=== PATIENT | female | born 1980 | race Hispanic/Latino ===

== ENCOUNTER 2019-12-08 01:37 | Emergency (ER) | payer MEDICAID ==
--- NOTE | 2019-12-08 04:50 | XRay Report ---
CHEST 1 VIEW INDICATION: Chest Pain. COMPARISON: None. FINDINGS: Support devices: None. Heart: Normal. Lungs/Pleura: No acute pulmonary or pleural findings. IMPRESSION: 1. No acute findings. Signer Name: Bang Lawson MD Signed: 12/08/2019 4:45 AM Workstation Name: [id number]
[2019-12-08 04:55] LABS: Basophils % (Auto) 0.5 % (0.0-1.8); Eosinophils % (Auto) 0.2 % (0.0-4.3); Lymphocytes # (Auto) 2.3 K/mm3 (1.2-5.4); Lymphocytes % (Auto) 22.5 % (13.4-35.0); Monocytes # (Auto) 0.8 K/mm3 (0.0-0.8); Monocytes % (Auto) 7.5 % (0.0-7.3)
[2019-12-08 05:04] LABS: Hematocrit 40.5 % (30.3-42.9); Mean Corpuscular HGB Conc 35 % (30-34); Mean Corpuscular Volume 93 fl (79-97); Platelet Count 315 K/mm3 (140-440); Red Blood Count 4.37 M/mm3 (3.65-5.03); Red Cell Distribution Width 13.1 % (13.2-15.2)
[2019-12-08 05:09] LABS: BUN/Creatinine Ratio 12; Blood Urea Nitrogen 6 mg/dL (7-17); Calcium 9.4 mg/dL (8.4-10.2); Hemolysis Index 6
[2019-12-08 05:13] LABS: Alanine Aminotransferase 10 units/L (7-56); Albumin 4.6 g/dL (3.9-5)
[2019-12-08 05:16] LABS: Bilirubin,Direct < 0.2 mg/dL (0-0.2)
[2019-12-08 05:20] LABS: Amphetamine Screen,Urine PRESUMPTIVE NEGATIVE; Benzodiazepines Screen,Urine PRESUMPTIVE NEGATIVE; Cocaine Screen,Urine PRESUMPTIVE NEGATIVE; Methadone Screen,Urine PRESUMPTIVE NEGATIVE; Opiate Screen,Urine PRESUMPTIVE NEGATIVE
[2019-12-08 05:25] LABS: HCG Qualitative,Urine Negative (Negative)
[2019-12-08 05:55] LABS: Cannabinoid Screen,Urine PRESUMPTIVE POSITIVE
[2019-12-08] MEDS ORDERED: POTASSIUM CHLORIDE ER 20 MEQ TAB PO ONE (06:11)
--- NOTE | 2019-12-08 06:27 | Emergency Department Report ---
ED Chest Pain HPI - General Chief Complaint: Chest Pain Stated Complaint: PSYCH Time Seen by Provider: 12/08/19 06:10 Source: patient Mode of arrival: Ambulatory Limitations: No Limitations - History of Present Illness Initial Comments: This is a 39-year old female with a history of schizophrenia/bipolar disorder? She has had previous psychiatric hospitalizations. She states that she has no cardiac history. She was entered in the system with a chief complaint of chest pain. However she does not complain to me of chest pain actively or recently at all. She states sometimes she feels like something is "pushing up" from her epigastric region. She seems to have no indication of acuity with this complaint. She is not complaining of any chest discomfort at this time. She states that she has never been hospitalized for chest pain. She does not give any history of diabetes, hypertension, hyperlipidemia or any medical problem. She is not compliant with her medicine for her mental health disorder but states, "Pot is my medicine". The triage note also indicates that the patient was recently incarcerated. That she has not recently traveled as she was in shelter for several days she states. She does not complain of leg pain or swelling. She has no prior history of VTE. She cannot state that she has had a prior EKG. She does smoke. Her father has a history of myocardial infarction she states. She denies any sort of medical hospitalization other than previous psychiatric hospitalizations however. The triage note indicates that the patient had auditory and visual hallucinations. The patient tells me this is not accurate as she has "agency over that". She is not violent, depressed homicidal or suicidal. As above, she is noncompliant with her psychiatric medication. MD Complaint: chest pain -: unknown Onset: during rest Pain Location: epigastric Pain Radiation: none Severity: mild Quality: other ("Pushing up") Consistency: intermittent, now resolved Improves With: nothing Worsens With: nothing re: denies: nausea, vomting, diaphoresis, dyspnea, sense of impending doom Other Symptoms: denies: cough, fever, syncope, rash, acid taste in mouth, leg swelling, palpitations, burping Treatments Prior to Arrival: none Aspirin use within the Past 7 Days: (0) No - Related Data Allergies Allergy/AdvReac Type Severity Reaction Status Date / Time sulfur dioxide Allergy Hives Verified 12/08/19 03:16 Heart Score - HEART Score History: Slightly suspicious EKG: Significant ST-depression Age: < 45 Risk factors: 1-2 risk factors Troponin: < normal limit HEART Score: 3 - Critical Actions Critical Actions: 0-3 pts:0.9-1.7%risk of adverse cardiac event.Candidate for discharge ED Review of Systems ROS: Stated complaint: PSYCH Other details as noted in HPI Constitutional: denies: chills, fever Eyes: denies: eye pain, eye discharge, vision change ENT: denies: ear pain, throat pain Respiratory: denies: cough, shortness of breath, wheezing Cardiovascular: chest pain. denies: palpitations Endocrine: no symptoms reported Gastrointestinal: denies: abdominal pain, nausea, diarrhea Genitourinary: denies: urgency, dysuria, discharge Musculoskeletal: denies: back pain, joint swelling, arthralgia Skin: denies: rash, lesions Neurological: denies: headache, weakness, paresthesias Psychiatric: as per HPI, auditory hallucinations, visual hallucinations. denies: anxiety, depression, homicidal thoughts, suicidal thoughts Hematological/Lymphatic: denies: easy bleeding, easy bruising ED Past Medical Hx - Past Medical History Previous Medical History?: No - Surgical History Past Surgical History?: Yes Additional Surgical History: x2 - Family History Family history: CAD/FL - Social History Smoking Status: Current Every Day Smoker Substance Use Type: Alcohol ED Physical Exam - General Limitations: No Limitations General appearance: alert, in no apparent distress - Head Head exam: Present: atraumatic, normocephalic - Eye Eye exam: Present: normal appearance. Absent: scleral icterus - ENT ENT exam: Present: mucous membranes moist - Neck Neck exam: Present: normal inspection, full ROM - Respiratory Respiratory exam: Present: normal lung sounds bilaterally. Absent: respiratory distress - Cardiovascular Cardiovascular Exam: Present: regular rate, normal rhythm. Absent: systolic murmur, diastolic murmur, rubs, gallop - GI/Abdominal GI/Abdominal exam: Present: soft, normal bowel sounds. Absent: distended, tenderness, guarding - Extremities Exam Extremities exam: Present: normal inspection. Absent: pedal edema, joint swelling, calf tenderness - Back Exam Back exam: Present: normal inspection - Neurological Exam Neurological exam: Present: alert, oriented X3, CN II-XII intact. Absent: motor sensory deficit - Psychiatric Psychiatric exam: Present: other (Flight of ideas, loose association, slightly hypomanic) - Skin Skin exam: Present: warm, dry, intact, normal color. Absent: rash ED Course Vital Signs 12/08/19 12/08/19 12/08/19 03:24 05:57 07:30 Temperature 98.3 F 98.5 F 98.9 F Pulse Rate 113 H 100 H 84 Respiratory 14 18 18 Rate Blood Pressure 153/89 Blood Pressure 134/74 129/89 [Left] O2 Sat by Pulse 99 100 98 Oximetry 12/08/19 08:10 Temperature 98.9 F Pulse Rate 84 Respiratory 18 Rate Blood Pressure Blood Pressure 129/89 [Left] O2 Sat by Pulse 98 Oximetry - Reevaluation(s) Reevaluation #1: A repeat 12-lead EKG was obtained after potassium administration. The ST depression is decreased. Patient has had no complaint of chest pain here. The patient's d-dimer was slightly elevated. We will proceed with a CTA. I think there is very low likelihood of this being positive. Ultimately the patient should be medically clear for psychiatric placement unless anything else is found. 12/08/19 09:32 12/08/19 09:37 Reevaluation #2: Patient had an episode of active hallucinosis and appeared to be quite delusional. She was given Ativan and Geodon. A 1013 was executed. She is pending mental health evaluation and I presume placement. 12/08/19 09:33 GERSON score - Gerson Score Age > 65: (0) No Aspirin use within the Past 7 Days: (0) No 3 or more CAD Risk Factors: (0) No 2 or more Angina events in past 24 hrs: (0) No Known CAD with more than 50% Stenosis: (0) No Elevated Cardiac Markers: (0) No ST Deviation Greater than 0.5mm: (0) No GERSON Score: 0 ED Medical Decision Making - Lab Data Result diagrams: 12/08/19 04:29 12/08/19 04:29 Laboratory Results - last 24 hr 12/08/19 12/08/19 12/08/19 04:29 04:29 04:34 WBC 10.1 RBC 4.37 Hgb 14.0 Hct 40.5 MCV 93 MCH 32 MCHC 35 H RDW 13.1 L Plt Count 315 Lymph % (Auto) 22.5 Cole % (Auto) 7.5 H Eos % (Auto) 0.2 Baso % (Auto) 0.5 Lymph # 2.3 Cole # 0.8 Eos # 0.0 Baso # 0.0 Seg Neutrophils % 69.3 Seg Neutrophils # 7.0 Sodium 142 Potassium 3.0 L Chloride 101.4 Carbon Dioxide 22 Anion Gap 22 BUN 6 L Creatinine 0.5 L Estimated GFR > 60 BUN/Creatinine Ratio 12 Glucose 169 H Calcium 9.4 Total Bilirubin Direct Bilirubin Indirect Bilirubin AST ALT Alkaline Phosphatase Troponin T < 0.010 Total Protein Albumin Albumin/Globulin Ratio Urine HCG, Qual Salicylates < 0.3 L Urine Opiates Screen Urine Methadone Screen Acetaminophen Ur Barbiturates Screen Ur Phencyclidine Scrn Ur Amphetamines Screen U Benzodiazepines Scrn Urine Cocaine Screen U Marijuana (THC) Screen Drugs of Abuse Note 12/08/19 12/08/19 12/08/19 04:34 04:34 04:40 WBC RBC Hgb Hct MCV MCH MCHC RDW Plt Count Lymph % (Auto) Cole % (Auto) Eos % (Auto) Baso % (Auto) Lymph # Cole # Eos # Baso # Seg Neutrophils % Seg Neutrophils # Sodium Potassium Chloride Carbon Dioxide Anion Gap BUN Creatinine Estimated GFR BUN/Creatinine Ratio Glucose Calcium Total Bilirubin 0.60 Direct Bilirubin < 0.2 Indirect Bilirubin 0.4 AST 15 ALT 10 Alkaline Phosphatase 82 Troponin T Total Protein 6.9 Albumin 4.6 Albumin/Globulin Ratio 2.0 Urine HCG, Qual Negative Salicylates Urine Opiates Screen Urine Methadone Screen Acetaminophen < 5.0 L Ur Barbiturates Screen Ur Phencyclidine Scrn Ur Amphetamines Screen U Benzodiazepines Scrn Urine Cocaine Screen U Marijuana (THC) Screen Drugs of Abuse Note 12/08/19 04:40 WBC RBC Hgb Hct MCV MCH MCHC RDW Plt Count Lymph % (Auto) Cole % (Auto) Eos % (Auto) Baso % (Auto) Lymph # Cole # Eos # Baso # Seg Neutrophils % Seg Neutrophils # Sodium Potassium Chloride Carbon Dioxide Anion Gap BUN Creatinine Estimated GFR BUN/Creatinine Ratio Glucose Calcium Total Bilirubin Direct Bilirubin Indirect Bilirubin AST ALT Alkaline Phosphatase Troponin T Total Protein Albumin Albumin/Globulin Ratio Urine HCG, Qual Salicylates Urine Opiates Screen Presumptive negative Urine Methadone Screen Presumptive negative Acetaminophen Ur Barbiturates Screen Presumptive negative Ur Phencyclidine Scrn Presumptive negative Ur Amphetamines Screen Presumptive negative U Benzodiazepines Scrn Presumptive negative Urine Cocaine Screen Presumptive negative U Marijuana (THC) Screen Presumptive positive Drugs of Abuse Note Disclamer - EKG Data -: EKG Interpreted by Me EKG shows normal: sinus rhythm Rate: normal - EKG Data Interpretation: other (Inferolateral depressed T waves, uncertain recency, consider electrolyte disorder or ischemia) - Radiology Data Radiology results: report reviewed (No acute process), image reviewed IMPRESSION: 1. No CT evidence for pulmonary embolism. 2. No acute findings. Critical care attestation.: If time is entered above; I have spent that time in minutes in the direct care of this critically ill patient, excluding procedure time. ED Disposition Clinical Impression: Bipolar 1 disorder with moderate cailin, Acute psychosis, Hypokalemia Disposition: DC/TX-65 PSY HOSP/PSY UNIT Is pt being admited?: No Does the pt Need Aspirin: No Condition: Stable Referrals: PRIMARY CARE, [Primary Care Provider] - 3-5 Days Time of Disposition: 13:30
[2019-12-08] MEDS ORDERED: ZIPRASIDONE MESYLATE 20 MG VIAL IM ONE (07:01)
[2019-12-08] MEDS ORDERED: LORazepam 2 MG/ML VIAL IM ONE (07:01)
[2019-12-08 07:39] LABS: Partial Thromboplastin Time 28.8 Sec. (24.2-36.6)
[2019-12-08] MEDS ORDERED: MAGNESIUM OXIDE 400 MG TAB PO ONE (10:35)
--- NOTE | 2019-12-08 12:44 | Cat Scan Report ---
CTA CHEST WITH IV CONTRAST INDICATION / CLINICAL INFORMATION: Chest pain, slightly elevated dimer. TECHNIQUE: Axial CT images were obtained through the chest after injection of 100 mL Omnipaque 350 milligrams pe rcent IV contrast. 3 plane MIP and/or 3D reconstructions were produced. All CT scans at this location are performed using CT dose reduction for ALARA by means of automated exposure control. COMPARISON: None available. FINDINGS: PULMONARY ARTERIES: No pulmonary emboli. THORACIC AORTA: No significant abnormality. HEART: No significant abnormality. CORONARY ARTERIES: No significant calcification. PLEURA: No pleural effusion. No pneumothorax. LYMPH NODES: No significant adenopathy. LUNGS: No acute air space or interstitial disease. ADDITIONAL FINDINGS: None. UPPER ABDOMEN: No acute findings. SKELETAL STRUCTURES: No significant osseous abnormality. IMPRESSION: 1. No CT evidence for pulmonary embolism. 2. No acute findings. Signer Name: Tanner Rosario MD Signed: 12/08/2019 12:39 PM Workstation Name: [id number]
[2019-12-08] MEDS ORDERED: MAGNESIUM HYDROXIDE (MOM) ORAL LIQD UDC PO PRN (13:27)
[2019-12-08] MEDS ORDERED: ACETAMINOPHEN 325 MG TAB PO PRN (13:27)
[2019-12-08] MEDS ORDERED: ALUM-MAG HYDROXIDE-SIMETHICONE 200-200-20MG/5ML ORAL LIQD 30 ML PO PRN (13:27)
[2019-12-08] MEDS ORDERED: LORazepam 1 MG TAB PO ONE (13:28)
[2019-12-08] MEDS ORDERED: ZIPRASIDONE MESYLATE 20 MG VIAL IM PRN (13:28)
[2019-12-08] MEDS ORDERED: ZIPRASIDONE 20 MG CAP PO SCH (14:00)
[2019-12-08 22:01] VITALS: BP 126/83
== END 2019-12-08 22:05 ==
LOC: ED 01:37
DX: F31.9 Bipolar disorder, unspecified (principal); E87.6 Hypokalemia; I25.2 Old myocardial infarction; I25.10 Atherosclerotic heart disease of native coronary artery without angina pectoris; F17.200 Nicotine dependence, unspecified, uncomplicated; Z88.2 Allergy status to sulfonamides
CPT/HCPCS: 36415; 71045; 71275; 80048; 80076; 80307; 81025; 84484; 85025; 85379; 85610; 85730; 93005; 93010; 96372; 99285; J2060; J3486; Q9967; 80320; G0480

== ENCOUNTER 2020-05-20 21:48 | Emergency (ER) | payer MEDICAID ==
[2020-05-20 22:41] LABS: Bilirubin,Urine NEG (Negative); Blood,Urine NEG (Negative); Color,Urine Yellow (Yellow); Protein,Urine <15 mg/dL mg/dL (Negative); Urobilinogen,Urine < 2.0 mg/dL (<2.0)
[2020-05-20 22:45] LABS: Amphetamine Screen,Urine PRESUMPTIVE NEGATIVE; Benzodiazepines Screen,Urine PRESUMPTIVE NEGATIVE; Cannabinoid Screen,Urine PRESUMPTIVE POSITIVE; Cocaine Screen,Urine PRESUMPTIVE NEGATIVE; Methadone Screen,Urine PRESUMPTIVE NEGATIVE; Opiate Screen,Urine PRESUMPTIVE NEGATIVE
[2020-05-20 23:36] LABS: Basophils # (Auto) 0.2 K/mm3 (0.0-0.1); Basophils % (Auto) 1.8 % (0.0-1.8); Eosinophils # (Auto) 0.1 K/mm3 (0.0-0.4); Eosinophils % (Auto) 0.5 % (0.0-4.3); Hematocrit 40.4 % (30.3-42.9); Lymphocytes # (Auto) 2.6 K/mm3 (1.2-5.4); Lymphocytes % (Auto) 20.3 % (13.4-35.0); Mean Corpuscular HGB Conc 35 % (30-34); Mean Corpuscular Volume 91 fl (79-97); Monocytes # (Auto) 0.6 K/mm3 (0.0-0.8); Monocytes % (Auto) 4.9 % (0.0-7.3); Platelet Count 248 K/mm3 (140-440); Red Blood Count 4.42 M/mm3 (3.65-5.03); Red Cell Distribution Width 14.3 % (13.2-15.2)
[2020-05-20 23:49] LABS: Blood Urea Nitrogen 5 mg/dL (7-17); Hemolysis Index 5
[2020-05-20 23:51] LABS: BUN/Creatinine Ratio 8
--- NOTE | 2020-05-21 02:16 | Emergency Department Report ---
ED Psych HPI - General Chief Complaint: Psych Stated Complaint: SI,DEPRESSION Time Seen by Provider: 05/21/20 01:51 Source: patient Mode of arrival: Ambulatory - History of Present Illness Initial Comments: Patient is a 39-year-old female who is presenting with suicidal ideations. Patient states she has a long history of depression and approximately a year ago she smoked marijuana which was laced with methamphetamines. Since that time she is continued to have some delusions. She states that she was having long period of time where she was believing that there was a celebrity communicating with her through the television. Patient states she is lost her job and is now homeless and also has lost her children and the financial support of her parents. She states up until 2 weeks ago she was engrossed in these delusions patient states that 2 weeks ago she started feeling more lucid but also more depressed that she is lost everything has been living which she believes is [place] for months. Patient states she was googling ways to kill herself today but decided to come to the emergency department to get help. She is having no homicidal ideations and states she is hearing no voices or seeing anything that is not there. - Related Data Allergies Allergy/AdvReac Type Severity Reaction Status Date / Time sulfur dioxide Allergy Hives Verified 12/08/19 03:16 ED Review of Systems ROS: Stated complaint: SI,DEPRESSION Other details as noted in HPI Comment: All other systems reviewed and negative ED Past Medical Hx - Past Medical History Previous Medical History?: Yes Hx Psychiatric Treatment: Yes (Schizophrenia, Depression, Anxiety) - Surgical History Past Surgical History?: Yes Additional Surgical History: x2 - Social History Smoking Status: Current Every Day Smoker Substance Use Type: None ED Physical Exam - General Limitations: No Limitations General appearance: alert, in no apparent distress, other (tearful) - Head Head exam: Present: atraumatic, normocephalic - Eye Eye exam: Present: normal appearance, PERRL, EOMI - ENT ENT exam: Present: mucous membranes moist - Neck Neck exam: Present: normal inspection - Respiratory Respiratory exam: Present: normal lung sounds bilaterally, chest wall tenderness. Absent: respiratory distress, wheezes, rales, rhonchi - Cardiovascular Cardiovascular Exam: Present: regular rate, normal rhythm. Absent: normal heart sounds, systolic murmur, diastolic murmur, rubs, gallop - GI/Abdominal GI/Abdominal exam: Present: soft, normal bowel sounds. Absent: distended, tenderness, guarding, rebound - Extremities Exam Extremities exam: Present: normal inspection - Back Exam Back exam: Present: normal inspection - Neurological Exam Neurological exam: Present: alert, oriented X3 - Psychiatric Psychiatric exam: Present: normal affect, normal mood - Skin Skin exam: Present: warm, dry, intact, normal color. Absent: rash ED Course Vital Signs 05/20/20 21:58 Temperature 98.6 F Pulse Rate 71 Respiratory 18 Rate Blood Pressure 118/76 O2 Sat by Pulse 98 Oximetry - Reevaluation(s) Reevaluation #1: 05/21/20 02:16 Patient is medically cleared at this time. ED Medical Decision Making - Lab Data Result diagrams: 05/20/20 23:17 05/20/20 23:17 Lab Results 05/20/20 05/20/20 05/20/20 Range/Units 22:16 22:16 23:17 WBC (4.5-11.0) K/mm3 RBC (3.65-5.03) M/mm3 Hgb (10.1-14.3) gm/dl Hct (30.3-42.9) % MCV (79-97) fl MCH (28-32) pg MCHC (30-34) % RDW (13.2-15.2) % Plt Count (140-440) K/mm3 Lymph % (Auto) (13.4-35.0) % [place] % (Auto) (0.0-7.3) % Eos % (Auto) (0.0-4.3) % Baso % (Auto) (0.0-1.8) % Lymph # (1.2-5.4) K/mm3 [place] # (0.0-0.8) K/mm3 Eos # (0.0-0.4) K/mm3 Baso # (0.0-0.1) K/mm3 Seg Neutrophils % (40.0-70.0) % Seg Neutrophils # (1.8-7.7) K/mm3 Sodium (137-145) mmol/L Potassium (3.6-5.0) mmol/L Chloride (98-107) mmol/L Carbon Dioxide (22-30) mmol/L Anion Gap mmol/L BUN (7-17) mg/dL Creatinine (0.6-1.2) mg/dL Estimated GFR ml/min BUN/Creatinine Ratio % Glucose (65-100) mg/dL Calcium (8.4-10.2) mg/dL HCG, Qual (Negative) Urine Color Yellow (Yellow) Urine Turbidity Clear (Clear) Urine pH 6.0 (5.0-7.0) Ur Specific Cosmos 1.008 (1.003-1.030) Urine Protein <15 mg/dl (Negative) mg/dL Urine Glucose (UA) Neg (Negative) mg/dL Urine Ketones Neg (Negative) mg/dL Urine Blood Neg (Negative) Urine Nitrite Neg (Negative) Urine Bilirubin Neg (Negative) Urine Urobilinogen < 2.0 (<2.0) mg/dL Ur Leukocyte Esterase Neg (Negative) Urine WBC (Auto) 1.0 (0.0-6.0) /HPF Urine RBC (Auto) 1.0 (0.0-6.0) /HPF U Epithel Cells (Auto) 1.0 (0-13.0) /HPF Salicylates < 0.3 L (2.8-20.0) mg/dL Urine Opiates Screen Presumptive negative Urine Methadone Screen Presumptive negative Acetaminophen (10.0-30.0) ug/mL Ur Barbiturates Screen Presumptive negative Ur Phencyclidine Scrn Presumptive negative Ur Amphetamines Screen Presumptive negative U Benzodiazepines Scrn Presumptive negative Urine Cocaine Screen Presumptive negative U Marijuana (THC) Screen Presumptive positive Drugs of Abuse Note Disclamer Plasma/Serum Alcohol (0-0.07) % 05/20/20 05/20/20 05/20/20 Range/Units 23:17 23:17 23:17 WBC (4.5-11.0) K/mm3 RBC (3.65-5.03) M/mm3 Hgb (10.1-14.3) gm/dl Hct (30.3-42.9) % MCV (79-97) fl MCH (28-32) pg MCHC (30-34) % RDW (13.2-15.2) % Plt Count (140-440) K/mm3 Lymph % (Auto) (13.4-35.0) % [place] % (Auto) (0.0-7.3) % Eos % (Auto) (0.0-4.3) % Baso % (Auto) (0.0-1.8) % Lymph # (1.2-5.4) K/mm3 [place] # (0.0-0.8) K/mm3 Eos # (0.0-0.4) K/mm3 Baso # (0.0-0.1) K/mm3 Seg Neutrophils % (40.0-70.0) % Seg Neutrophils # (1.8-7.7) K/mm3 Sodium 138 (137-145) mmol/L Potassium 4.0 (3.6-5.0) mmol/L Chloride 101.4 (98-107) mmol/L Carbon Dioxide 24 (22-30) mmol/L Anion Gap 17 mmol/L BUN 5 L (7-17) mg/dL Creatinine 0.6 (0.6-1.2) mg/dL Estimated GFR > 60 ml/min BUN/Creatinine Ratio 8 % Glucose 93 (65-100) mg/dL Calcium 9.0 (8.4-10.2) mg/dL HCG, Qual (Negative) Urine Color (Yellow) Urine Turbidity (Clear) Urine pH (5.0-7.0) Ur Specific Cosmos (1.003-1.030) Urine Protein (Negative) mg/dL Urine Glucose (UA) (Negative) mg/dL Urine Ketones (Negative) mg/dL Urine Blood (Negative) Urine Nitrite (Negative) Urine Bilirubin (Negative) Urine Urobilinogen (<2.0) mg/dL Ur Leukocyte Esterase (Negative) Urine WBC (Auto) (0.0-6.0) /HPF Urine RBC (Auto) (0.0-6.0) /HPF U Epithel Cells (Auto) (0-13.0) /HPF Salicylates (2.8-20.0) mg/dL Urine Opiates Screen Urine Methadone Screen Acetaminophen 5.0 L (10.0-30.0) ug/mL Ur Barbiturates Screen Ur Phencyclidine Scrn Ur Amphetamines Screen U Benzodiazepines Scrn Urine Cocaine Screen U Marijuana (THC) Screen Drugs of Abuse Note Plasma/Serum Alcohol < 0.01 (0-0.07) % 05/20/20 05/20/20 Range/Units 23:17 23:23 WBC 12.6 H (4.5-11.0) K/mm3 RBC 4.42 (3.65-5.03) M/mm3 Hgb 14.0 (10.1-14.3) gm/dl Hct 40.4 (30.3-42.9) % MCV 91 (79-97) fl MCH 32 (28-32) pg MCHC 35 H (30-34) % RDW 14.3 (13.2-15.2) % Plt Count 248 (140-440) K/mm3 Lymph % (Auto) 20.3 (13.4-35.0) % [place] % (Auto) 4.9 (0.0-7.3) % Eos % (Auto) 0.5 (0.0-4.3) % Baso % (Auto) 1.8 (0.0-1.8) % Lymph # 2.6 (1.2-5.4) K/mm3 [place] # 0.6 (0.0-0.8) K/mm3 Eos # 0.1 (0.0-0.4) K/mm3 Baso # 0.2 H (0.0-0.1) K/mm3 Seg Neutrophils % 72.5 H (40.0-70.0) % Seg Neutrophils # 9.2 H (1.8-7.7) K/mm3 Sodium (137-145) mmol/L Potassium (3.6-5.0) mmol/L Chloride (98-107) mmol/L Carbon Dioxide (22-30) mmol/L Anion Gap mmol/L BUN (7-17) mg/dL Creatinine (0.6-1.2) mg/dL Estimated GFR ml/min BUN/Creatinine Ratio % Glucose (65-100) mg/dL Calcium (8.4-10.2) mg/dL HCG, Qual Negative (Negative) Urine Color (Yellow) Urine Turbidity (Clear) Urine pH (5.0-7.0) Ur Specific Cosmos (1.003-1.030) Urine Protein (Negative) mg/dL Urine Glucose (UA) (Negative) mg/dL Urine Ketones (Negative) mg/dL Urine Blood (Negative) Urine Nitrite (Negative) Urine Bilirubin (Negative) Urine Urobilinogen (<2.0) mg/dL Ur Leukocyte Esterase (Negative) Urine WBC (Auto) (0.0-6.0) /HPF Urine RBC (Auto) (0.0-6.0) /HPF U Epithel Cells (Auto) (0-13.0) /HPF Salicylates (2.8-20.0) mg/dL Urine Opiates Screen Urine Methadone Screen Acetaminophen (10.0-30.0) ug/mL Ur Barbiturates Screen Ur Phencyclidine Scrn Ur Amphetamines Screen U Benzodiazepines Scrn Urine Cocaine Screen U Marijuana (THC) Screen Drugs of Abuse Note Plasma/Serum Alcohol (0-0.07) % Critical care attestation.: If time is entered above; I have spent that time in minutes in the direct care of this critically ill patient, excluding procedure time. ED Disposition Condition: Stable
[2020-05-21] MEDS ORDERED: hydrOXYzine PAMOATE 25 MG CAP PO ONE (10:33)
[2020-05-21] MEDS ORDERED: NICOTINE 7 MG/24 HR PATCH TD ONE (11:00)
[2020-05-21 11:10] VITALS: BP 100/64
== END 2020-05-21 16:07 ==
LOC: ED 21:48
DX: R45.851 Suicidal ideations (principal); F20.9 Schizophrenia, unspecified; F32.9 Major depressive disorder, single episode, unspecified; F17.200 Nicotine dependence, unspecified, uncomplicated; Z98.890 Other specified postprocedural states; Z88.8 Allergy status to other drugs, medicaments and biological substances
CPT/HCPCS: 36415; 80048; 80307; 80320; 81001; 84703; 85025; G0480; Q0177

== ENCOUNTER 2020-11-01 21:46 | Emergency (ER) | payer MEDICAID ==
[2020-11-01 22:45] LABS: Bilirubin,Urine NEG (Negative); Blood,Urine NEG (Negative); Color,Urine Straw (Yellow); Mucus,Urine FEW /HPF; Protein,Urine <15 mg/dL mg/dL (Negative); Urobilinogen,Urine < 2.0 mg/dL (<2.0); WBC,Urine < 1.0 /HPF (0.0-6.0)
[2020-11-01 22:53] LABS: Amphetamine Screen,Urine PRESUMPTIVE NEGATIVE; Benzodiazepines Screen,Urine PRESUMPTIVE NEGATIVE; Cannabinoid Screen,Urine PRESUMPTIVE POSITIVE; Cocaine Screen,Urine PRESUMPTIVE NEGATIVE; Methadone Screen,Urine PRESUMPTIVE NEGATIVE; Opiate Screen,Urine PRESUMPTIVE NEGATIVE
[2020-11-01 23:39] LABS: Blood Urea Nitrogen 12 mg/dL (7-17); Calcium 8.8 mg/dL (8.4-10.2); Hemolysis Index 24
[2020-11-01 23:45] LABS: BUN/Creatinine Ratio 20
[2020-11-02 00:04] LABS: Basophils % (Auto) 0.5 % (0.0-1.8); Eosinophils # (Auto) 0.1 K/mm3 (0.0-0.4); Eosinophils % (Auto) 1.2 % (0.0-4.3); Hematocrit 35.9 % (30.3-42.9); Hemoglobin 12.5 gm/dl (10.1-14.3); Lymphocytes # (Auto) 3.7 K/mm3 (1.2-5.4); Lymphocytes % (Auto) 41.4 % (13.4-35.0); Mean Corpuscular HGB Conc 35 % (30-34); Mean Corpuscular Volume 92 fl (79-97); Monocytes # (Auto) 0.7 K/mm3 (0.0-0.8); Monocytes % (Auto) 7.5 % (0.0-7.3); Platelet Count 241 K/mm3 (140-440); Red Blood Count 3.91 M/mm3 (3.65-5.03); Red Cell Distribution Width 13.3 % (13.2-15.2)
[2020-11-02] MEDS ORDERED: ACETAMINOPHEN 325 MG TAB PO PRN (00:06)
[2020-11-02] MEDS ORDERED: LORazepam 2 MG/ML VIAL IM PRN (00:06)
[2020-11-02] MEDS ORDERED: HALOPERIDOL LACTATE 5 MG/1 ML INJ IM PRN (00:06)
--- NOTE | 2020-11-02 00:27 | Emergency Department Report ---
ED General Adult HPI - General Chief complaint: Psych Stated complaint: MH PUI?: No Time Seen by Provider: 11/02/20 00:05 Source: patient, RN notes reviewed, old records reviewed Mode of arrival: Ambulatory Limitations: Other (Acute psychosis) - History of Present Illness Initial comments: The patient was evaluated in the emergency department for symptoms described in the history of present illness. He/she was evaluated in the context of the global COVID-19 pandemic, which necessitated consideration that the patient might be at risk for infection with the virus that causes COVID-19. Institutional protocols and algorithms that pertain to the evaluation of patients at risk for COVID-19 are in a state of rapid change based on information released by regulatory bodies including the CDC and federal and state organizations. These policies and algorithms were followed during the patient's care in the emergency department. Please note that these policies, procedures and recommendations changed on a rapid basis. During the history and physical examination, I am chaperoned by Accounting Clerk Savannah RIVERA The patient is a 40-year-old female with a history of schizophrenia and bipolar. She was reportedly with friends cecilia as per triage documentations, and her friends brought her off and dropped her here. Apparently, they were concerned about the patient's psychiatric health. The patient has been drinking alcohol since Tuesday, and may have dropped some acid, and has been having conversations with herself and crying. She has also been reportedly trying to feed the fish on the screen saver of her computer. The patient denies physical pain. She denies hallucinations, overdose, homicidality, suicidality, cough, loss of taste and smell, and urinary symptoms. The patient herself has no acute medical complaints. When asked why she is feeding the fish on her screen saver, she reports that she is doing this because she is microchipped. Improves with: none Worsens with: none Associated Symptoms: denies other symptoms - Related Data Home Medications Medication Instructions Recorded Confirmed Last Taken Unobtainable 11/02/20 11/02/20 Unknown Allergies Allergy/AdvReac Type Severity Reaction Status Date / Time Sulfa (Sulfonamide Allergy Hives Verified 11/01/20 22:05 Antibiotics) sulfur dioxide Allergy Hives Verified 12/08/19 03:16 ED Review of Systems ROS: Stated complaint: MH Other details as noted in HPI Comment: All other systems reviewed and negative ED Past Medical Hx - Past Medical History Previous Medical History?: Yes Hx Psychiatric Treatment: Yes (Schizophrenia, Depression, Anxiety) - Surgical History Additional Surgical History: x2 - Social History Smoking Status: Current Every Day Smoker - Medications Home Medications: Home Medications Medication Instructions Recorded Confirmed Last Taken Type Unobtainable 11/02/20 11/02/20 Unknown History ED Physical Exam - General Limitations: Other (Acutely psychotic and disorganized) General appearance: alert, other (Patient smiling and laughing to herself, appears to be responding to internal stimuli) - Head Head exam: Present: atraumatic, normocephalic - Eye Eye exam: Present: normal appearance, EOMI. Absent: nystagmus - ENT ENT exam: Present: normal exam, normal orophraynx, mucous membranes moist, normal external ear exam - Neck Neck exam: Present: normal inspection, full ROM. Absent: tenderness, meningismus - Respiratory Respiratory exam: Present: normal lung sounds bilaterally. Absent: respiratory distress, wheezes, rales, rhonchi, stridor - Cardiovascular Cardiovascular Exam: Present: regular rate, normal rhythm, normal heart sounds. Absent: bradycardia, tachycardia, irregular rhythm, systolic murmur, diastolic murmur, rubs, gallop - GI/Abdominal GI/Abdominal exam: Present: soft. Absent: distended, tenderness, guarding, rebound, rigid, pulsatile mass - Extremities Exam Extremities exam: Present: normal inspection, full ROM, other (2+ pulses noted in the bilateral upper and lower extremities. There is no palpable cord. negative Homans sign. Muscular compartments are soft. The pelvis is stable.). Absent: pedal edema - Back Exam Back exam: Present: normal inspection, full ROM. Absent: tenderness, CVA tenderness (R), CVA tenderness (L), paraspinal tenderness, vertebral tenderness - Neurological Exam Neurological exam: Present: alert, oriented X3, other (No facial droop. Tongue midline. Extraocular movements intact bilaterally. Facial sensation intact to light touch in V1, V2, V3 distribution bilaterally. 5 and a 5 strength in 4 extremities. Sensation intact to light touch in 4 extremities.) - Psychiatric Psychiatric exam: Absent: homicidal ideation, suicidal ideation - Skin Skin exam: Present: warm, dry, intact, normal color. Absent: rash ED Course Vital Signs 11/01/20 11/02/20 11/02/20 22:00 00:44 01:06 Temperature 99.5 F 98.4 F Pulse Rate 73 80 Respiratory 18 18 20 Rate Blood Pressure 129/77 Blood Pressure 126/76 [Right] O2 Sat by Pulse 97 100 97 Oximetry 11/02/20 08:39 Temperature 97.7 F Pulse Rate 69 Respiratory 18 Rate Blood Pressure Blood Pressure 116/46 [Right] O2 Sat by Pulse 100 Oximetry ED Medical Decision Making - Lab Data Result diagrams: 11/01/20 23:00 11/01/20 23:00 Vital Signs 11/01/20 22:00 Temperature 99.5 F Pulse Rate 73 Respiratory 18 Rate Blood Pressure 129/77 O2 Sat by Pulse 97 Oximetry Lab Results 11/01/20 11/01/20 11/01/20 Range/Units 23:00 23:00 23:00 WBC (4.5-11.0) K/mm3 RBC (3.65-5.03) M/mm3 Hgb (10.1-14.3) gm/dl Hct (30.3-42.9) % MCV (79-97) fl MCH (28-32) pg MCHC (30-34) % RDW (13.2-15.2) % Plt Count (140-440) K/mm3 Lymph % (Auto) (13.4-35.0) % [place] % (Auto) (0.0-7.3) % Eos % (Auto) (0.0-4.3) % Baso % (Auto) (0.0-1.8) % Lymph # (Auto) (1.2-5.4) K/mm3 [place] # (Auto) (0.0-0.8) K/mm3 Eos # (Auto) (0.0-0.4) K/mm3 Baso # (Auto) (0.0-0.1) K/mm3 Seg Neutrophils % (40.0-70.0) % Seg Neutrophils # (1.8-7.7) K/mm3 Sodium 137 (137-145) mmol/L Potassium 4.4 (3.6-5.0) mmol/L Chloride 102.4 (98-107) mmol/L Carbon Dioxide 25 (22-30) mmol/L Anion Gap 14 mmol/L BUN 12 (7-17) mg/dL Creatinine 0.6 (0.6-1.2) mg/dL Estimated GFR > 60 ml/min BUN/Creatinine Ratio 20 % Glucose 88 (65-100) mg/dL Calcium 8.8 (8.4-10.2) mg/dL Urine Color (Yellow) Urine Turbidity (Clear) Urine pH (5.0-7.0) Ur Specific [place] (1.003-1.030) Urine Protein (Negative) mg/dL Urine Glucose (UA) (Negative) mg/dL Urine Ketones (Negative) mg/dL Urine Blood (Negative) Urine Nitrite (Negative) Urine Bilirubin (Negative) Urine Urobilinogen (<2.0) mg/dL Ur Leukocyte Esterase (Negative) Urine WBC (Auto) (0.0-6.0) /HPF Urine RBC (Auto) (0.0-6.0) /HPF U Epithel Cells (Auto) (0-13.0) /HPF Urine Mucus /HPF Salicylates < 0.3 L (2.8-20.0) mg/dL Urine Opiates Screen Urine Methadone Screen Acetaminophen 5.0 L (10.0-30.0) ug/mL Ur Barbiturates Screen Ur Phencyclidine Scrn Ur Amphetamines Screen U Benzodiazepines Scrn Urine Cocaine Screen U Marijuana (THC) Screen Drugs of Abuse Note Plasma/Serum Alcohol (0-0.07) % 11/01/20 11/01/20 11/01/20 Range/Units 23:00 23:00 Unknown WBC 9.0 (4.5-11.0) K/mm3 RBC 3.91 (3.65-5.03) M/mm3 Hgb 12.5 (10.1-14.3) gm/dl Hct 35.9 (30.3-42.9) % MCV 92 (79-97) fl MCH 32 (28-32) pg MCHC 35 H (30-34) % RDW 13.3 (13.2-15.2) % Plt Count 241 (140-440) K/mm3 Lymph % (Auto) 41.4 H (13.4-35.0) % [place] % (Auto) 7.5 H (0.0-7.3) % Eos % (Auto) 1.2 (0.0-4.3) % Baso % (Auto) 0.5 (0.0-1.8) % Lymph # (Auto) 3.7 (1.2-5.4) K/mm3 [place] # (Auto) 0.7 (0.0-0.8) K/mm3 Eos # (Auto) 0.1 (0.0-0.4) K/mm3 Baso # (Auto) 0.0 (0.0-0.1) K/mm3 Seg Neutrophils % 49.4 (40.0-70.0) % Seg Neutrophils # 4.4 (1.8-7.7) K/mm3 Sodium (137-145) mmol/L Potassium (3.6-5.0) mmol/L Chloride (98-107) mmol/L Carbon Dioxide (22-30) mmol/L Anion Gap mmol/L BUN (7-17) mg/dL Creatinine (0.6-1.2) mg/dL Estimated GFR ml/min BUN/Creatinine Ratio % Glucose (65-100) mg/dL Calcium (8.4-10.2) mg/dL Urine Color Straw (Yellow) Urine Turbidity Clear (Clear) Urine pH 7.0 (5.0-7.0) Ur Specific [place] 1.012 (1.003-1.030) Urine Protein <15 mg/dl (Negative) mg/dL Urine Glucose (UA) Neg (Negative) mg/dL Urine Ketones Neg (Negative) mg/dL Urine Blood Neg (Negative) Urine Nitrite Neg (Negative) Urine Bilirubin Neg (Negative) Urine Urobilinogen < 2.0 (<2.0) mg/dL Ur Leukocyte Esterase Neg (Negative) Urine WBC (Auto) < 1.0 (0.0-6.0) /HPF Urine RBC (Auto) 2.0 (0.0-6.0) /HPF U Epithel Cells (Auto) < 1.0 (0-13.0) /HPF Urine Mucus Few /HPF Salicylates (2.8-20.0) mg/dL Urine Opiates Screen Urine Methadone Screen Acetaminophen (10.0-30.0) ug/mL Ur Barbiturates Screen Ur Phencyclidine Scrn Ur Amphetamines Screen U Benzodiazepines Scrn Urine Cocaine Screen U Marijuana (THC) Screen Drugs of Abuse Note Plasma/Serum Alcohol < 0.01 (0-0.07) % 11/01/20 Range/Units Unknown WBC (4.5-11.0) K/mm3 RBC (3.65-5.03) M/mm3 Hgb (10.1-14.3) gm/dl Hct (30.3-42.9) % MCV (79-97) fl MCH (28-32) pg MCHC (30-34) % RDW (13.2-15.2) % Plt Count (140-440) K/mm3 Lymph % (Auto) (13.4-35.0) % [place] % (Auto) (0.0-7.3) % Eos % (Auto) (0.0-4.3) % Baso % (Auto) (0.0-1.8) % Lymph # (Auto) (1.2-5.4) K/mm3 [place] # (Auto) (0.0-0.8) K/mm3 Eos # (Auto) (0.0-0.4) K/mm3 Baso # (Auto) (0.0-0.1) K/mm3 Seg Neutrophils % (40.0-70.0) % Seg Neutrophils # (1.8-7.7) K/mm3 Sodium (137-145) mmol/L Potassium (3.6-5.0) mmol/L Chloride (98-107) mmol/L Carbon Dioxide (22-30) mmol/L Anion Gap mmol/L BUN (7-17) mg/dL Creatinine (0.6-1.2) mg/dL Estimated GFR ml/min BUN/Creatinine Ratio % Glucose (65-100) mg/dL Calcium (8.4-10.2) mg/dL Urine Color (Yellow) Urine Turbidity (Clear) Urine pH (5.0-7.0) Ur Specific [place] (1.003-1.030) Urine Protein (Negative) mg/dL Urine Glucose (UA) (Negative) mg/dL Urine Ketones (Negative) mg/dL Urine Blood (Negative) Urine Nitrite (Negative) Urine Bilirubin (Negative) Urine Urobilinogen (<2.0) mg/dL Ur Leukocyte Esterase (Negative) Urine WBC (Auto) (0.0-6.0) /HPF Urine RBC (Auto) (0.0-6.0) /HPF U Epithel Cells (Auto) (0-13.0) /HPF Urine Mucus /HPF Salicylates (2.8-20.0) mg/dL Urine Opiates Screen Presumptive negative Urine Methadone Screen Presumptive negative Acetaminophen (10.0-30.0) ug/mL Ur Barbiturates Screen Presumptive negative Ur Phencyclidine Scrn Presumptive negative Ur Amphetamines Screen Presumptive negative U Benzodiazepines Scrn Presumptive negative Urine Cocaine Screen Presumptive negative U Marijuana (THC) Screen Presumptive positive Drugs of Abuse Note Disclamer Plasma/Serum Alcohol (0-0.07) % - Medical Decision Making Differential diagnosis, including but not limited to: Acute psychosis, medical clearance for psychiatric placement Assessment and plan: 40-year-old female, who was afebrile with reassuring vital signs, walking with a steady gait, nonfocal motor exam, essentially brought up for psychiatric evaluation. In my opinion, the patient is acutely psychotic, and lacks decision-making capacity. She is smiling to herself, and appears to be responding to internal stimuli. Her thought process is illogical and nonse nsical. She meets criteria for 1013 hold/involuntary hold. 1013 is executed. Screening laboratory studies unremarkable. Psychiatric consultation is requested. At this point in time, patient does not appear to have an immediate medical contraindication to psychiatric admission, evaluation, consultation and placement. Critical care attestation.: If time is entered above; I have spent that time in minutes in the direct care of this critically ill patient, excluding procedure time. ED Disposition Clinical Impression: Psychosis, Medical clearance for psychiatric admission Disposition: [id number] TO HOME OR SELFCARE Is pt being admited?: No Does the pt Need Aspirin: No Condition: Good Additional Instructions: Please follow-up with your primary care physician. Please follow-up with a psychiatrist in the next few days. Return to the emergency department with any worsening of your symptoms, thoughts of harming yourself or others, or with any acute distress. Please avoid any further alcohol or illicit drugs. Referrals: [facility] [Outside] - 2-3 Days PRIMARY MD JOSE A [Primary Care Provider] - 2-3 Days SIXTO DUNCAN MD [Referring] - 2-3 Days
[2020-11-02 08:40] VITALS: BP 116/46
--- NOTE | 2020-11-02 08:55 | Consultation ---
History of Present Illness - Reason for Consult Consult date: 11/02/20 Reason for consult: mental health evaluation - History of Present Psychiatric Illness Ivania Paniagua is a 40y/o female patient who according to ER note, "with history of schizophrenia and bipolar. She was reportedly with friends cecilia as per triage documentations, and her friends brought her off and dropped her here. Apparently, they were concerned about the patient's psychiatric health. The patient has been drinking alcohol since Tuesday, and may have dropped some acid, and has been having conversations with herself and crying. She has also been reportedly trying to feed the fish on the screen saver of her computer." During my interview with the patient she is lying in bed awake. She is a/o x 3. She is calm, cooperative and pleasant. The patient is lucid. She makes fair eye contact. She says she was brought to the hospital by her friends. She says "I t hink because I was feeling too good." She then laughs. The patient says she had been drinking and smoked marijuana. The patient also says she has a history of "meth use but not since last year." She denies SI/HI, stating "no not at all." The patient says she had once "suicidal attempt" last year when she "tried to pluck my vain out with my fingernail because I was in retirement." She denies hallucinations of any kind. She describes her mood as "good, got a lot of rest." She says she's had several psych admissions in the past. The patient says she is not on any medication and "never took it because I don't feel like I needed." PAST PSYCHIATRIC HISTORY Diagnoses: Bipolar, schizophrenia Suicide attempts or Self-harm behavior: "once" Prior psychiatric hospitalizations: several Substance Abuse history: THC, alcohol, meth Previous psychiatric medications tried: None Outpatient treatment: Denies at present PAST MEDICAL HISTORY: none reported Family Psychiatric History: None reported or documented SOCIAL HISTORY Marital Status: Single Living Arrangements: Lives with friends Employment Status: Unemployed Access to guns/weapons: Denies Education: high school History of Abuse: none reported Legal History: none reported REVIEW OF SYSTEMS Constitutional: Negative for weight loss ENT: Negative for stridor Respiratory: Negative for cough or hemoptysis All other systems reviewed and are negative MENTAL STATUS EXAMINATION General Appearance and Behavior: Age appropriate, good hygiene, wearing appropriate clothes, fair eye contact, cooperative polite with questioning. Calm, cooperative Cooperation: Participating/engaged Psychomotor Behavior: unremarkable and within normal limits Mood: "good" Affect and affective range: congruent with mood Thought Process: goal directed Thought Content: None Speech: Normal volume, Regular rate and rhythm, Suicidal Ideation: Denies Homicidal Ideation: Denies Impulse Control: Normal Insight and Judgment: Limited insight and judgment, Memory: Normal Attention: Normal Orientation: Alert, oriented Assessment and Plan (1) Other psychoactive substsance use, with Substance Induced Mood Disorder (F19.94) Current Visit: Yes Status: Acute Treatment No scripts at this time. The patient needs to establish outpatient psychiatry Sitter: Defer to primary Medical: Per primary Disposition: Do not recommend acute inpatient psychiatric treatment. The patient understands that fear of endangerment, or psychosis arise she is to seek immediate assistance including 911, ER or the crisis hotline. The patient is to abstain from all illicit drugs and alcohol The patient is to follow up with outpatient psych in 7 to 14 days upon discharge. The plum packer is to give the patient outpatient resources to establish psychiatry, CBT, and drug and alcohol rehab Will sign off. Thank you for this consult. Case staffed with Dr. Curtis. Medications and Allergies Allergies Allergy/AdvReac Type Severity Reaction Status Date / Time Sulfa (Sulfonamide Allergy Hives Verified 11/01/20 22:05 Antibiotics) sulfur dioxide Allergy Hives Verified 12/08/19 03:16 Home Medications Medication Instructions Recorded Confirmed Last Taken Type Unobtainable 11/02/20 11/02/20 Unknown History Active Meds: Active Medications Acetaminophen (Acetaminophen 325 Mg Tab) 650 mg PO Q6HR PRN PRN Reason: PAIN Haloperidol Lactate (Haloperidol Lactate 5 Mg/1 Ml Inj) 5 mg IM Q6HR PRN PRN Reason: Agitation Lorazepam (Lorazepam 2 Mg/Ml Vial) 2 mg IM Q4HR PRN PRN Reason: Agitation Mental Status Exam - Vital signs Last Vital Signs Temp 97.7 F 11/02/20 08:39 Pulse 69 11/02/20 08:39 Resp 18 11/02/20 08:39 BP 116/46 11/02/20 08:39 Pulse Ox 100 11/02/20 08:39 Results Result Diagrams: 11/01/20 23:00 01/16/21 23:00 Abnormal lab results 11/01/20 11/01/20 11/01/20 Range/Units 23:00 23:00 23:00 MCHC 35 H (30-34) % Lymph % (Auto) 41.4 H (13.4-35.0) % [place] % (Auto) 7.5 H (0.0-7.3) % Salicylates < 0.3 L (2.8-20.0) mg/dL Acetaminophen 5.0 L (10.0-30.0) ug/mL All other labs normal.
== END 2020-11-02 12:30 | disposition home or self-care (01) ==
LOC: ED 21:46
DX: F29 Unspecified psychosis not due to a substance or known physiological condition (principal); Z04.6 Encounter for general psychiatric examination, requested by authority; F17.200 Nicotine dependence, unspecified, uncomplicated; Z98.890 Other specified postprocedural states; Z88.2 Allergy status to sulfonamides; Z88.8 Allergy status to other drugs, medicaments and biological substances
CPT/HCPCS: 36415; 80048; 80307; 80320; 81001; 85025; G0480